=== PATIENT | male | born 1960 | race Two or more races ===

== ENCOUNTER 2020-08-27 14:45 | Outpatient (CLI) | payer MEDICAID | END 2020-08-27 23:59 | disposition home or self-care (01) | LOC: MSC 14:45 | PROVIDERS: ATTEND Internal Medicine | DX: N17.9 Acute kidney failure, unspecified (principal); D64.9 Anemia, unspecified; I10 Essential (primary) hypertension; K52.9 Noninfective gastroenteritis and colitis, unspecified; Z93.3 Colostomy status ==

== ENCOUNTER 2020-10-01 15:05 | Outpatient (CLI) | payer MEDICAID | END 2020-10-01 23:59 | disposition home or self-care (01) | LOC: MSC 15:05 | PROVIDERS: ATTEND Internal Medicine | DX: N17.9 Acute kidney failure, unspecified (principal); D64.9 Anemia, unspecified; I10 Essential (primary) hypertension; K52.9 Noninfective gastroenteritis and colitis, unspecified; Z98.890 Other specified postprocedural states; Z79.899 Other long term (current) drug therapy ==

== ENCOUNTER 2020-10-08 14:52 | Outpatient (CLI) | payer MEDICAID | END 2020-10-08 23:59 | disposition home or self-care (01) | LOC: MSC 14:52 | PROVIDERS: ATTEND Internal Medicine | DX: N17.9 Acute kidney failure, unspecified (principal); D64.9 Anemia, unspecified; I10 Essential (primary) hypertension; Z93.3 Colostomy status ==